=== PATIENT | male | born 1945 | race Caucasian/White ===

== ENCOUNTER 2019-10-09 09:39 | Outpatient (CLI) | payer MEDICARE, OTHER ==
[~2019-10-09 09:39] MED LIST: ALLO300T PO; ASPI-650 PO; GLIM2TAB7 PO; LEVO25TA4 PO; METF850T10 PO; TAMS0.4C2 PO; TYLENOL PO
== END 2019-10-09 23:59 | disposition home or self-care (01) ==
LOC: CFH 09:39
PROVIDERS: ATTEND Internal Medicine Cardiovascular Disease
DX: I08.0 Rheumatic disorders of both mitral and aortic valves (principal); I45.19 Other right bundle-branch block
CPT/HCPCS: 78452; 93017; 93306; A9502